=== PATIENT | male | born 1955 | race Caucasian/White ===

== ENCOUNTER 2017-09-25 07:11 | Emergency (ER) | payer MEDICARE, MEDICAID ==
--- NOTE | 2017-09-25 07:29 | Emergency Department Record ---
History of Present Illness - General Chief Complaint: Chest Pain Stated Complaint: CHEST PAIN Time Seen by Provider: 09/25/17 07:22 Source: Patient Mode of Arrival: Ambulatory Limitations: No limitations - History of Present Illness Initial Comments: The patient is here due to chest pain for the last 10 hours. He describes it as an aching pain retrosternal that intermittently radiates to her L arm. He denies any SOB, CAROL, sweating or nausea with the pain. It started last evening while at rest and did improve but returned this AM. He did take some Tylenol and 2 baby ASA's this AM for it and it did improve it mildly. The patient denies any hx of similar issues and no recent illnesses. He does have cardiac risk factors of HTN and family hx. MD Complaint: Chest pain Onset/Timin -: Hour(s) Onset: During rest Pain Location: Substernal Pain Radiation: LUE, Neck Treatments Prior to Arrival: Aspirin - Related Data Allergies Allergy/AdvReac Type Severity Reaction Status Date / Time No Known Drug Allergies Allergy Unverified 08/14/17 10:51 Travel Screening - Travel/Exposure Within Last 30 Days Have you traveled within the last 30 days?: No - Travel/Exposure Within Last Year Have you traveled outside the [place] in the last year?: No - Additonal Travel Details Have you been exposed to anyone with a communicable illness?: No Review of Systems Constitutional: Denies: Chills, Fever Eyes: Denies: Eye discharge ENT: Denies: Congestion Respiratory: Denies: Cough Cardiovascular: Reports: Chest pain Endocrine: Denies: Fatigue Gastrointestinal: Denies: Abdominal pain Genitourinary: Denies: Dysuria Musculoskeletal: Denies: Arthralgia Past Medical History - SOCIAL HISTORY Smoking Status: Former smoker Alcohol Use: None Drug Use: Occasional Drug Use Detail:: Marijuana - RESPIRATORY Hx Respiratory Disorders: No - CARDIOVASCULAR Hx Cardio Disorders: Yes Hx Hypertension: Yes 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) - NEURO Hx Neuro Disorders: No - GI Hx GI Disorders: Yes Hx Abdominal Pain: Yes (over 1 year) Hx Reflux: Yes Hx Hepatitis/Jaundice: Yes (had hep C-rx not a prob now) Hx Liver Disease: Yes - Hx Genitourinary Disorders: No - ENDOCRINE Hx Endocrine Disorders: No Hx Diabetes: No Hx Thyroid Disease: No - MUSCULOSKELETAL Hx Musculoskeletal Disorders: Yes Hx Arthritis: Yes (hands,neck) Hx Back Injury: No - PSYCH Hx Psych Problems: Yes Hx Anxiety: Yes Hx Depression: Yes - HEMATOLOGY/ONCOLOGY Hx Hematology/Oncology Disorders: Yes Hx Blood Transfusions: Yes (with appy?) Family Medical History Any Significant Family History?: No Hx Cancer: Mother, Brother/Sister Hx HTN: Father, Brother/Sister Hx Resp Disorders: Mother Physical Exam - General General Appearance: Alert, Oriented x3, Cooperative, No acute distress - Head Head exam: Atraumatic, Normocephalic, Normal inspection - Eye Eye exam: Normal appearance, PERRL, EOMI - ENT Throat exam: Normal inspection. negative: Tonsillar erythema, Tonsillar exudate - Neck Neck exam: Normal inspection, Full ROM. negative: Tenderness - Respiratory Respiratory exam: Normal lung sounds bilaterally. negative: Respiratory distress - Cardiovascular Cardiovascular Exam: Regular rate, Normal rhythm, Normal heart sounds - GI/Abdominal GI/Abdominal exam: Soft, Normal bowel sounds. negative: Tenderness - Extremities Extremities exam: Normal inspection, Full ROM, Normal capillary refill. negative: Tenderness - Neurological Neurological exam: Alert, Normal gait, Oriented X3. negative: Abnormal gait, Motor sensory deficit Course Vital Signs 09/25/17 07:16 Temperature 98.1 F Pulse Rate [ 74 Pulse Ox Probe] Respiratory 18 Rate Blood Pressure 193/118 [Left Arm] Pulse Ox 100 - Reevaluation(s) Reevaluation #1: The patient is doing better after the first NTG tab. His pain did improve so we will give him a 2nd. 09/25/17 07:55 Reevaluation #2: The patient is doing better. He is pain free at this time but does have a mild ANGUIANO. I did discuss the case with the patient and did tell him his test results are WNL's. Due to the patient being a patient of Dr. Menjivar I will contact [facility] Cardiology to discuss the case. 09/25/17 08:11 Reevaluation #3: I did discuss the case with Dr. Cassidy who is purification supervisor for Dr. Bull. He did accept the patient to the hospital at [facility] [place]. 09/25/17 08:22 Reevaluation #4: I did discuss the xrays results with the patient and the need for F/U. 09/25/17 08:50 Medical Decision Making - Data Complexity MDM Data: Labs Ordered and/or Reviewed, X-Ray Ordered and/or Reviewed, EKG Ordered and/or Reviewed - Lab Data Result diagrams: 09/25/17 07:30 09/25/17 07:30 - EKG Data -: EKG Interpreted by Me EKG: No Acute Changes, Normal EKG, Unchanged From Previous - Radiology Data Radiology results: Report reviewed (Xray: No acute changes. Rec short term F/u. ) Disposition Disposition: Discharge Clinical Impression: Chest pain Qualifiers: Chest pain type: unspecified Qualified Code(s): R07.9 - Chest pain, unspecified Disposition: Acute Care Hospital Transfer Transfer To: [facility] [place] Reason For Transfer: Cardiology Accepting Physician: Mugal Time Discussed w/Accepting Physician: 08:22 Condition: (2) Stable Instructions: Chest Pain (ED) Forms: Patient Portal Access Time of Disposition: 08:22 Quality - Quality Measures Quality Measures: N/A - Blood Pressure Screening View Details: Yes Does Patient Have Any of the Following: No, Active Dx of HTN Blood Pressure Classification: Hypertensive Reading Systolic Measurement: 129 Diastolic Measurement: 91 Screening for High Blood Pressure: Patient Exclusion, Hx of HTN [[id number]]
[2017-09-25] MEDS ORDERED: ASPIRIN 81 MG CHEWABLE TABLET PO ONE (07:34)
[2017-09-25] MEDS ORDERED: NITROGLYCERIN 0.4MG SL TABLET #25 BTL SL ONE ×2 (07:34→07:54)
[2017-09-25 07:47] LABS: HEMATOCRIT 38.8 % (42.0-52.0); HEMOGLOBIN 13.5 gm/dl (14.0-18.0); MEAN CELL VOLUME 88.6 fl (81-97); MEAN CORPUSCULAR HEMOGLOBIN 30.8 pg (27-33); MEAN CORPUSCULAR HGB CONC 34.8 g/dl (32-36); MEAN PLATELET VOLUME 9.4 fl (7.4-10.4); PLATELET COUNT 261 K/uL (130-400); RED BLOOD COUNT 4.38 M/uL (4.40-5.70); RED CELL DISTRIBUTION WIDTH 12.6 % (11.5-14.5); WHITE BLOOD COUNT W/O DIFF 10.9 K/uL (4.2-12.2)
[2017-09-25 07:58] LABS: BLOOD UREA NITROGEN 15 mg/dL (8-23); CREATININE 0.6 mg/dL (0.7-1.2); EST GLOMERULAR FILTRATION RATE > 60 mL/min
[2017-09-25 08:00] LABS: INR 1.01; PARTIAL THROMBOPLASTIN TIME 30.6 SECONDS (24.5-39.1); PROTHROMBIN TIME (PATIENT) 10.9 SECONDS (9.5-12.1)
[2017-09-25 08:01] LABS: GLUCOSE,RANDOM 130 mg/dL (74-109)
[2017-09-25 08:04] LABS: CREATINE PHOSPHOKINASE 123 U/L (39-308)
[2017-09-25 08:05] LABS: CKMB 2.7 ng/mL (<6.73)
[2017-09-25] MEDS ORDERED: MORPHINE SULFATE 5 MG/ML PFS IVP ONE (08:07)
--- NOTE | 2017-09-26 05:47 | RADIOLOGY REPORT ---
DATE: 09/25/2017 at 0756. EXAM: PORTABLE CHEST. HISTORY: Sudden onset of left-sided chest pain last night. Smoking history. TECHNIQUE: A single mobile upright view of the chest is obtained. COMPARISON: Single-view, chest, dated 08/14/2014. FINDINGS: The heart remains normal in size and the pulmonary vasculature is nondilated. The lungs and pleural spaces are grossly clear. The osseous structures appear intact. IMPRESSION: 1. NO DEFINITE RADIOGRAPHIC EVIDENCE OF ACUTE CARDIOPULMONARY DISEASE. 2. NOT MENTIONED ABOVE IS A SUBTLE NODULAR OPACITY PROJECTING TO THE LEVEL OF THE LATERAL LEFT HEMITHORAX BASE MEASURING 8.0 MM. THIS MAY JUST RELATE TO SUPERIMPOSITION OF NORMAL SHADOWS OR POSSIBLY A NIPPLE SHADOW, THOUGH AN INDETERMINATE LUNG NODULE WOULD BE DIFFICULT TO EXCLUDE. A SHORT-TERM FOLLOW- UP RADIOGRAPHIC EXAMINATION INCLUDING UPRIGHT PA, LATERAL, AND SHELL OBLIQUE VIEWS WITH NIPPLE MARKERS IN PLACE IS RECOMMENDED. JOB NUMBER: [id number] MTDD
== END 2017-09-25 08:58 | disposition short-term general hospital (02) ==
LOC: ER 07:11
DX: R07.2 Precordial pain (principal); M54.2 Cervicalgia; R51 Headache; I10 Essential (primary) hypertension; F17.210 Nicotine dependence, cigarettes, uncomplicated
CPT/HCPCS: 99285 ×2; 96374; 82550; 85730; 85610; 82553; 80048; 84484; 85379; 85027; 71010; 93005; 93010; J2270

== ENCOUNTER 2019-01-04 07:02 | Day surgery (SDC) | payer MEDICARE ==
[~2019-01-04 07:02] MED LIST: CEFAZOLIN 2 Gram 2 GM/50 ML BAG IVPB ONE
[2019-01-04] MEDS ORDERED: ACETAMINOPHEN 1,000 MG/100 ML BTL IV ONE (07:03)
[2019-01-04] MEDS ORDERED: PROPOFOL 10 MG/ML VIAL IV ONE (07:03)
[2019-01-04] MEDS ORDERED: SEVOFLURANE 250 ML INH ONE (07:03)
[2019-01-04] MEDS ORDERED: LIDOCAINE 2% MDV (20MG/ML) 20ML VIAL IV ONE (07:03)
[2019-01-04] MEDS ORDERED: 0.9 % SODIUM CHLORIDE 10 ML VIAL IVP ONE (07:03)
[2019-01-04] MEDS ORDERED: FENTANYL PF 100MCG/2ML VIAL IV ONE (07:03)
[2019-01-04] MEDS ORDERED: MIDAZOLAM HCL 2MG/2ML VIAL IV ONE (07:03)
[2019-01-04] MEDS ORDERED: DEXAMETHASONE 4 MG/ML 1ML VIAL IVP ONE ×2 (07:03)
[2019-01-04] MEDS ORDERED: GLYCOPYRROLATE 0.2 MG/ML ML IV ONE (07:03)
[2019-01-04] MEDS ORDERED: BUPIVACAINE 0.25% W/EPI MPF 30ML VIAL IVP ONE (07:03)
[2019-01-04] MEDS ORDERED: ONDANSETRON HCL IV 4 MG/2 ML VIAL IVP ONE (07:03)
[2019-01-04] MEDS ORDERED: HYDROCODONE/APAP 5/325MG TABLET PO ONE (07:03)
[2019-01-04] MEDS ORDERED: ROPIVACAINE HCL (NAROPIN) /PF 5MG/ML 20ML VIAL IV ONE (07:03)
--- NOTE | 2019-01-05 12:31 | Operative Note ---
DATE OF SURGERY: 01/04/2019 Surgeon: Yasmany Daniels D.O. Referring physician: Griselda Dodge M.D. PREOPERATIVE DIAGNOSIS: Reducible left inguinal hernia. POSTOPERATIVE DIAGNOSIS: Reducible left inguinal hernia, indirect. OPERATION: Open right inguinal herniorrhaphy with mesh. Anesthesia: General. PROCEDURE: The patient is a 63-year-old male, he was brought to the operating room and placed in the supine position. General anesthesia was administered per the Department of Anesthesia. The patient's left inguinal region was shaved of hair and prepped and draped in sterile fashion. A time-out was performed. He had received preoperative inguinal block per the Department of Anesthesia. He also received DVT prophylaxis as well as antibiotics. At this time, the oblique region was anesthetized with a total of 5 mL of 0.25% Sensorcaine with epinephrine. A 4 cm oblique incision was made. This was carried down through the subcutaneous tissues to the aponeurosis of the external oblique. This is skeletonized. A carlos was made with the scalpel and enlarged through the superficial inguinal ring with Metzenbaum scissors. Care was taken not to injure the ilioinguinal nerve or spermatic cord. At this time, a superior and inferior flap was developed and a Rocco was placed on the spermatic cord and this was dissected free from the underlying transversalis fascia. A Arcanum drain was placed. The floor was inspected and noted to be free of any direct hernia. The cremasteric fibers were taken down. There was an indirect hernia as well as a cord lipoma. High ligations of each were done with 0 Vicryl. At this time, a left-sided Procrit mesh was obtained. This was placed in the floor of the inguinal canal with excellent overlap of the pubic tubercle. Sutures put at the level of the pubic tubercle, the shelving portion of the inguinal ligament, and the internal oblique aponeurosis. The lateral triangle was protected at the lateral aspect of the mesh. At this time, the aponeurosis was closed over the cord with 2-0 Vicryl. The Maryanne's layer was closed with 3-0 Vicryl and the skin was closed with 4-0 Vicryl. He was taken to the recovery room in satisfactory condition. FINDINGS AT THE TIME OF SURGERY: Left inguinal hernia, indirect. Repaired as above. MTDD
== END 2019-01-04 09:50 | disposition home or self-care (01) ==
LOC: SUR 07:02
PROVIDERS: ATTEND Surgery
DX: K40.90 Unilateral inguinal hernia, without obstruction or gangrene, not specified as recurrent (principal); I10 Essential (primary) hypertension; Z95.1 Presence of aortocoronary bypass graft; Z86.19 Personal history of other infectious and parasitic diseases
CPT/HCPCS: 49505; 00830; 64425; 76942; J2405; J3010; J0690; J2795